=== PATIENT | male | born 1980 | race American Indian/Alaskan Native ===

== ENCOUNTER 2021-12-31 10:43 | Emergency (ER) | payer SELFPAY ==
[2021-12-31 11:29] VITALS: BP 129/80
[2021-12-31] MEDS ORDERED: KETOROLAC 10 MG TAB PO ONE (11:48)
[2021-12-31] MEDS ORDERED: CYCLOBENZAPRINE 10 MG TAB PO ONE (11:48)
[2021-12-31] MEDS ORDERED: dexAMETHasone 4 MG/ML VIAL IM ONE (11:48)
[2021-12-31] MEDS ORDERED: oxyCODONE /ACETAMINOPHEN 5-325MG TAB PO ONE (11:49)
--- NOTE | 2021-12-31 11:55 | Emergency Department Report ---
ED Back Pain/Injury HPI - General Chief Complaint: Back Pain/Injury Stated Complaint: SCIATICA Time Seen by Provider: 12/31/21 11:19 Source: patient, EMS Limitations: No Limitations - History of Present Illness Initial Comments: 41-year-old black male with no past medical history presents to the emergency department for evaluation of right lower back pain. He states that he started having pain initially on Wednesday, was seen at [facility], and diagnosed with sciatica. He states that he was sent home with Flexeril and Voltaren which relieved his pain some but yesterday, he started to have severe pain to his right lower back that radiated down his entire leg with some numbness and tingling. He denies fever or urinary symptoms but states that pain is now 10 out of 10 and intermittent. MD Complaint: back pain -: Gradual, days(s) (1) Similar Symptoms Previously: Yes Place: home Radiation: right leg Severity: severe Severity scale (0 -10): 10 Quality: burning, sharp Consistency: intermittent Worsens With: walking Associated Symptoms: denies: weakness, chest pain, numbness, difficulty walking, difficulty urinating, diaphoresis, incontinence, fever/chills, constipation, headaches, abdominal pain, loss of appetite, malaise, nausea/vomiting, seizure, shortness of breath, syncope - Related Data Previous Rx's Medication Instructions Recorded Last Taken Type Lidocaine [Lidoderm] 1 each TP DAILY #10 patch 12/31/21 Unknown Rx Naproxen [Naprosyn] 500 mg PO BID #14 tab 12/31/21 Unknown Rx methOCARBAMOL [Robaxin TAB] 750 mg PO Q8H PRN #21 tab 12/31/21 Unknown Rx methylPREDNISolone [Medrol 4MG 4 mg PO DAILY #1 pack 12/31/21 Unknown Rx DOSEPAK (21 tabs)] Allergies Allergy/AdvReac Type Severity Reaction Status Date / Time No Known Allergies Allergy Verified 12/31/21 10:55 ED Review of Systems ROS: Stated complaint: SCIATICA Other details as noted in HPI Comment: All other systems reviewed and negative Constitutional: no symptoms reported. denies: chills, fever Respiratory: denies: shortness of breath, SOB with exertion Cardiovascular: denies: chest pain, palpitations, dyspnea on exertion, orthopnea, edema, syncope, paroxysmal nocturnal dyspnea Gastrointestinal: denies: abdominal pain, nausea, vomiting, diarrhea, hematemesis, melena, hematochezia Genitourinary: denies: urgency, dysuria, frequency, hematuria, discharge, testicular pain Musculoskeletal: back pain Skin: denies: rash, lesions Neurological: denies: headache, weakness, abnormal gait Psychiatric: denies: anxiety, depression ED Past Medical Hx - Social History Smoking Status: Never Smoker Substance Use Type: None - Medications Home Medications: Home Medications Medication Instructions Recorded Confirmed Last Taken Type Lidocaine [Lidoderm] 1 each TP DAILY #10 patch 12/31/21 Unknown Rx Naproxen [Naprosyn] 500 mg PO BID #14 tab 12/31/21 Unknown Rx methOCARBAMOL [Robaxin TAB] 750 mg PO Q8H PRN #21 tab 12/31/21 Unknown Rx methylPREDNISolone [Medrol 4MG 4 mg PO DAILY #1 pack 12/31/21 Unknown Rx DOSEPAK (21 tabs)] ED Physical Exam - General Limitations: No Limitations General appearance: alert, in no apparent distress - Head Head exam: Present: atraumatic, normocephalic - Eye Eye exam: Present: normal appearance. Absent: conjunctival injection - Neck Neck exam: Present: normal inspection, full ROM. Absent: tenderness, lymphaden opathy - Respiratory Respiratory exam: Present: normal lung sounds bilaterally. Absent: respiratory distress, wheezes, rales, rhonchi, stridor, chest wall tenderness - Cardiovascular Cardiovascular Exam: Present: regular rate, normal heart sounds - GI/Abdominal GI/Abdominal exam: Present: soft, normal bowel sounds. Absent: distended, tenderness, guarding, rebound, rigid - Extremities Exam Extremities exam: Present: normal inspection, full ROM, normal capillary refill. Absent: tenderness, pedal edema, joint swelling, calf tenderness - Expanded Lower Extremity Exam Right Hip exam: Present: normal inspection Lower Leg exam: Present: normal inspection Neuro vascular tendon exam: Present: no vascular compromise. Absent: pulse def icit, abnormal cap refill, motor deficit, sensory deficit, tendon deficit, extremity cold to touch, pallor Gait: Positive: observed and limited by pain - Back Exam Back exam: Present: normal inspection. Absent: CVA tenderness (R), CVA tenderness (L), paraspinal tenderness, vertebral tenderness - Expanded Back Exam Expanded Back exam: Absent: saddle anesthesia Back exam: Positive Straight Leg Raise: Right - Neurological Exam Neurological exam: Present: alert, oriented X3, CN II-XII intact, normal gait, reflexes normal. Absent: motor sensory deficit - Psychiatric Psychiatric exam: Present: normal affect, normal mood - Skin Skin exam: Present: warm, dry, intact, normal color ED Course Vital Signs 12/31/21 12/31/21 10:53 11:29 Temperature 98.3 F 98.5 F Pulse Rate 83 73 Respiratory 18 Rate Blood Pressure 142/85 129/80 [Left] O2 Sat by Pulse 97 98 Oximetry ED Medical Decision Making - Medical Decision Making 41-year-old black male with no past medical history presents to the emergency department for evaluation of right lower back pain. He states that he started having pain initially on Wednesday, was seen at [facility], and diagnosed with sciatica. He states that he was sent home with Flexeril and Voltaren which relieved his pain some but yesterday, he started to have severe pain to his right lower back that radiated down his entire leg with some numbness and tingling. He denies fever or urinary symptoms but states that pain is now 10 out of 10 and intermittent. Exam consistent with sciatica pain. Patient will be treated with Decadron 8 mg IM, Flexeril 10 mg p.o., Toradol 10 mg p.o., and 1 5/325 Percocet while in the emergency department. He will be discharged home with naproxen, Medrol Dosepak, Robaxin, and Lidoderm patch to use as needed for pain. He is advised to take medications as prescribed and follow-up with primary care provider if no improvement or worsening symptoms. He verbalized understanding of and agreement with plan of care. Critical care attestation.: If time is entered above; I have spent that time in minutes in the direct care of this critically ill patient, excluding procedure time. ED Disposition Clinical Impression: Lumbar radicular pain Disposition: HOME / SELF CARE / HOMELESS Is pt being admited?: No Does the pt Need Aspirin: No Condition: Stable Instructions: Radicular Pain, Sciatica Rehab-SportsMed, Sciatica, [facility]-Wxy[facility] Additional Instructions: Take medications as prescribed. Follow-up with primary care provider if no improvement or worsening symptoms. Return to the emergency department as needed. Prescriptions: Lidocaine [Lidoderm] 1 each TP DAILY #10 patch methylPREDNISolone [Medrol 4MG DOSEPAK (21 tabs)] 4 mg PO DAILY #1 pack Naproxen [Naprosyn] 500 mg PO BID #14 tab methOCARBAMOL [Robaxin TAB] 750 mg PO Q8H PRN #21 tab PRN Reason: Muscle Spasm Referrals: TYRELL WESTON MD [Staff Physician] - 3-5 Days DARIEL REES MD [Staff Physician] - 3-5 Days Forms: Work/School Release Form(ED) Time of Disposition: 12:06
== END 2021-12-31 12:16 | disposition home or self-care (01) ==
LOC: ED 10:43
DX: M54.16 Radiculopathy, lumbar region (principal); Z79.899 Other long term (current) drug therapy
CPT/HCPCS: 96372; 99283; J1100